=== PATIENT | female | born 2000 | race Hispanic/Latino ===

== ENCOUNTER 2022-04-06 07:34 | Outpatient (CLI) | payer OTHER ==
[2022-04-06 18:56] LABS: SARS-CoV-2 PCR by NAA Not Detected (NotDetected)
== END 2022-04-06 07:35 | disposition home or self-care (01) ==
LOC: CSHLAB 07:34
PROVIDERS: ATTEND Advanced Practice Midwife
DX: Z20.822 Contact with and (suspected) exposure to COVID-19 (principal)
CPT/HCPCS: U0003; U0005

== ENCOUNTER 2022-04-08 08:09 | Day surgery (SDC) | payer OTHER ==
[2022-04-08 08:44] VITALS: BMI 36.3
[2022-04-08] MEDS ORDERED: Acetaminophen 500 MG TAB PO SCH (09:00)
[2022-04-08] MEDS ORDERED: Iron Sucrose Complex 500 MG in Sodium Chloride 0.9% 250 ML 250 ML IVPB SCH (09:30)
== END 2022-04-08 14:05 | disposition home or self-care (01) ==
LOC: CSHLD/OP 08:09
PROVIDERS: ATTEND Advanced Practice Midwife
DX: O99.019 Anemia complicating pregnancy, unspecified trimester (principal)
CPT/HCPCS: 96365; 96366; 99283; J1756; J7050

== ENCOUNTER 2022-04-19 16:34 | Inpatient (IN) | payer OTHER ==
[~2022-04-19 16:34] MED LIST: Bupivacaine 0.25% HCL 30 ML VIAL ONE
[2022-04-19] MEDS ORDERED: Methylergonovine 0.2 MG/ML VIAL IM PRN (17:32)
[2022-04-19] MEDS ORDERED: Butorphanol Tartrate 1 MG/ML VIAL SLOW IVP PRN (17:32)
[2022-04-19] MEDS ORDERED: Diphenoxylate HCl/Atropine Tablet PO PRN (17:32)
[2022-04-19] MEDS ORDERED: Carboprost 250 MCG/ML AMP IM PRN (17:32)
[2022-04-19] MEDS ORDERED: HYDROcodone/Acetaminophen 5/325 mg Tablet PO PRN ×2 (17:32)
[2022-04-19] MEDS ORDERED: Acetaminophen 500 MG TAB PO PRN (17:32)
[2022-04-19] MEDS ORDERED: Promethazine HCl 25 MG/ML VIAL IM PRN ×2 (17:32→20:35)
[2022-04-19] MEDS ORDERED: Misoprostol 200 MCG TAB PR PRN (17:32)
[2022-04-19] MEDS ORDERED: Lidocaine 1% (PF) 30 ML VIAL SC PRN (17:32)
[2022-04-19] MEDS ORDERED: hydrALAZINE 20 MG/ML VIAL SLOW IVP PRN (17:32)
[2022-04-19] MEDS ORDERED: Ibuprofen 800 MG TAB PO PRN (17:32)
[2022-04-19] MEDS ORDERED: Ondansetron PF 4 MG/2 ML Vial IVP PRN ×2 (17:32→20:35)
[2022-04-19] MEDS ORDERED: NS w/ Oxytocin 30 units 500 ML IV SCH ×2 (17:45)
[2022-04-19] MEDS ORDERED: Lactated Ringer's 1,000 ML IV SCH (17:45)
[2022-04-19 17:53] VITALS: BMI 35.9
[2022-04-19 18:10] LABS: Hemoglobin 11.3 g/dL (12.0-15.5); Mean Corpuscular HGB CONC 32.8 g/dL (32.0-36.0); Mean Corpuscular Hemoglobin 28.1 pg (27.0-33.0); Mean Corpuscular Volume 85.8 fl (81.6-98.3); Mean Platelet Volume 9.2 fl (7.4-10.4); Platelet Count 205 10x3/uL (150-450); RBC Distribution Width 19.7 % (11.5-14.5); Red Blood Cell (RBC) Count 4.02 10x6/uL (3.90-5.03); White Blood Cell (WBC) Count 9.8 10x3/uL (3.5-10.5)
[2022-04-19 18:42] LABS: HBSAg Index 0.17 S/CO (0-0.99); Hep B Surf Ag Non-Reactive S/CO (NonReactive); Syphilis Antibody Nonreactive (Nonreactive); Syphilis Antibody Index 0.06 S/CO (<1.00 Non-Reactive)
[2022-04-19] MEDS ORDERED: Fentanyl 2 mcg/Bup 0.1% Cadd 100 ML ONE (20:14)
[2022-04-19] MEDS ORDERED: Naloxone HCl 0.4 mg/ml Vial IVP PRN ×2 (20:35)
[2022-04-19] MEDS ORDERED: Acetaminophen 325 MG TAB PO PRN (20:35)
[2022-04-19] MEDS ORDERED: Moisturizing Cream (Eucerin) 113 GM JAR TOP PRN (20:35)
[2022-04-19] MEDS ORDERED: diphenhydrAMINE 50 MG/ML VIAL IVP PRN (20:35)
[2022-04-19] MEDS ORDERED: Lactated Ringer's 500 ML IV PRN (20:35)
[2022-04-19] MEDS ORDERED: ePHEDrine Sulfate 50 MG/10 ML VIAL SLOW IVP PRN (20:35)
[2022-04-19] MEDS ORDERED: Fentanyl 2 mcg/Bupivacaine 0.1% Cassette 100 ML EPIDURAL SCH (20:45)
[2022-04-19] MEDS ORDERED: Communication Order-Pharmacy FS SCH (20:45)
[2022-04-20] MEDS ORDERED: Benzocaine-Menthol 82.5 ML CAN TOP PRN (04:35)
[2022-04-20] MEDS ORDERED: Methylergonovine 0.2 MG/ML VIAL IM PRN (04:35)
[2022-04-20] MEDS ORDERED: Ondansetron PF 4 MG/2 ML Vial IVP PRN (04:35)
[2022-04-20] MEDS ORDERED: Lanolin Ointment 7 GM TUBE TOP PRN (04:35)
[2022-04-20] MEDS ORDERED: Milk Of Magnesia 30 ML UDCUP PO PRN (04:35)
[2022-04-20] MEDS ORDERED: HYDROcodone/Acetaminophen 5/325 mg Tablet PO PRN ×2 (04:35)
[2022-04-20] MEDS ORDERED: Bisacodyl 10 MG SUPP PR PRN (04:35)
[2022-04-20] MEDS ORDERED: Misoprostol 200 MCG TAB VAG PRN (04:35)
[2022-04-20] MEDS ORDERED: hydrALAZINE 20 MG/ML VIAL SLOW IVP PRN (04:35)
[2022-04-20] MEDS ORDERED: NS w/ Oxytocin 30 units 500 ML IV SCH (05:00)
[2022-04-20] MEDS: Ibuprofen 800 MG TAB PO SCH ×3 (05:05→21:36)
[2022-04-20 05:36] LABS: SARS-CoV-2 NAA Rapid Test Not Detected (NotDetected)
[2022-04-20] MEDS: Ferrous Sulfate 325 MG TAB PO SCH ×2 (07:55→18:03)
[2022-04-20] MEDS: Docusate 100 MG CAP PO SCH ×2 (08:58→21:36)
[2022-04-20] MEDS: Proctozone-HC 30 GM TUBE TOP SCH (21:36)
[2022-04-21] MEDS: Ibuprofen 800 MG TAB PO SCH (05:39)
[2022-04-21] MEDS: Ferrous Sulfate 325 MG TAB PO SCH (08:05)
[2022-04-21] MEDS: Docusate 100 MG CAP PO SCH (08:31)
[2022-04-21] MEDS: Proctozone-HC 30 GM TUBE TOP SCH (08:32)
[2022-04-21 08:39] VITALS: BP 113/58; TEMP 98.3
== END 2022-04-21 12:50 | disposition home or self-care (01) | DRG 807 ==
LOC: CSHLD/OP 16:34 → CSHLD 17:56 → CSHPP 04-20 04:15
PROVIDERS: ADMIT Obstetrics & Gynecology; ATTEND Obstetrics & Gynecology
PROC: 10E0XZZ Delivery of Products of Conception, External Approach (ICD-10-PCS; principal; 2022-04-20)
DX: O99.02 Anemia complicating childbirth (principal); Z37.0 Single live birth; D50.9 Iron deficiency anemia, unspecified; Z20.822 Contact with and (suspected) exposure to COVID-19; Z3A.39 39 weeks gestation of pregnancy; Z79.899 Other long term (current) drug therapy
CPT/HCPCS: 36415; 51702; 85027; 86780; 86850; 86900; 86901; 87340; 99285; J0595; S0020; U0002